=== PATIENT | female | born 1940 | race Caucasian/White ===

== ENCOUNTER 2017-08-20 18:52 | Emergency (ER) | payer MEDICARE ==
[~2017-08-20] VITALS: Ht 162.6 cm; Wt 63.5 kg
[~2017-08-20 18:52] MED LIST: METF500T4; SIMV10TA6 PO
--- NOTE | 2017-08-20 19:08 | NUR ---
PATIENT TO ED DT LEFT RIB PAIN, 07/10, ACHING SP FALL SUNDAY, PATIENT IS AAO4. APPEARS IN NO APPARENT DISTRESS. RESPIRATION EVEN AND UNLABORED. VSS. AFEBRILE, PENDING MD WILSON
[2017-08-20] MEDS ORDERED: HYDROMORPHONE INJ 2 MG/ML DISP.SYRIN ONE (19:40)
[2017-08-20] MEDS ORDERED: ONDANSETRON HCL/PF 4 MG/2 ML VIAL ONE (19:41)
[2017-08-20 19:50] LABS: BASOPHILS % (AUTO) 0.4 % (0.0-2.0); EOSINOPHILS # (AUTO) 0.2 /CMM (0.0-0.7); EOSINOPHILS % (AUTO) 2.2 % (0.0-6.0); HEMATOCRIT 36 % (33-45); HEMOGLOBIN 12.1 g/dL (11.5-14.8); LYMPHOCYTES # (AUTO) 2.8 /CMM (0.8-4.8); LYMPHOCYTES % (AUTO) 33.5 % (20.0-44.0); MEAN CORPUSCULAR HEMOGLOBIN 28 PG (26.0-33.0); MEAN CORPUSCULAR HGB CONC 34 g/dl (31.0-36.0); MEAN CORPUSCULAR VOLUME 84 fL (82-100); MONOCYTES # (AUTO) 0.5 /CMM (0.1-1.30); MONOCYTES % (AUTO) 6.5 % (2.0-12.0); NEUTROPHILS # (AUTO) 4.9 /CMM (1.8-8.9); NEUTROPHILS % (AUTO) 57.4 % (43.0-81.0); PLATELET COUNT (AUTO) 245 /CMM (150-450); RDW COEFFICIENT OF VARIATION 12.7 (11.5-15.0); RED BLOOD CELL COUNT(AUTO) 4.31 MIL/uL (4.0-5.2); WHITE BLOOD COUNT (AUTO) 8.4 K/uL (4.3-11.0)
[2017-08-20 20:00] LABS: CALCIUM, SERUM 9.7 mg/dL (8.5-10.1); CARBON DIOXIDE 29 mmol/L (21-32); CHLORIDE 103 mmol/L (98-107); CREATININE 0.9 mg/dL (0.6-1.3); GLUCOSE 140 mg/dL (74-106); POTASSIUM 3.9 mmol/L (3.5-5.1); SODIUM SERUM 139 mmol/L (136-145); UREA NITROGEN, BLOOD 20 mg/dL (7-18)
[2017-08-20] MEDS ORDERED: ONDANSETRON HCL/PF - ER 4 MG/2 ML VIAL IV ONE (20:00)
[2017-08-20] MEDS ORDERED: HYDROMORPHONE 1 MG/1 ML DISP.SYRIN IV ONE (20:00)
[2017-08-20 20:06] LABS: ALANINE AMINOTRANSFERASE 26 U/L (12-78); ALBUMIN 3.4 g/dL (3.4-5.0); ALKALINE PHOSPHATASE 64 U/L (46-116); ASPARTATE AMINOTRANSFERASE 22 U/L (15-37); BILIRUBIN,TOTAL 0.2 mg/dL (0.2-1.0); LIPASE 68 U/L (73-393)
[2017-08-20 22:00] VITALS: BP 130/71
--- NOTE | 2017-08-20 22:00 | NUR ---
Patient does not wish to proceed with medical care recommended by ([facility] ). Patient given information related to possible complications, up to and including , which could occur as a result of leaving the hospital at this time. Patient verbalizes understanding of risks involved due to leaving against medical advice. Patient has signed AMA form.
== END 2017-08-20 22:01 | disposition left against medical advice (07) ==
LOC: ER 18:53
DX: K80.20 Calculus of gallbladder without cholecystitis without obstruction (principal); K56.600 Partial intestinal obstruction, unspecified as to cause; K57.30 Diverticulosis of large intestine without perforation or abscess without bleeding; E11.9 Type 2 diabetes mellitus without complications; I10 Essential (primary) hypertension; K76.0 Fatty (change of) liver, not elsewhere classified; Z90.12 Acquired absence of left breast and nipple; Z90.11 Acquired absence of right breast and nipple; Z53.20 Procedure and treatment not carried out because of patient's decision for unspecified reasons
CPT/HCPCS: 36415; 71010; 74176; 80048; 80076; 83690; 85025; 96374; 96375; 99285; A4606; J1170; J2405 ×2; Z7610

== ENCOUNTER 2023-06-18 18:07 | Emergency (ER) | payer MEDICARE, OTHER ==
[~2023-06-18] VITALS: Ht 157.5 cm; Wt 82.6 kg
[~2023-06-18 18:07] MED LIST changes: +METF-440; -METF500T4; -SIMV10TA6 PO; +SIMV10TA98 PO
[2023-06-18 18:23] VITALS: BP 165/80; TEMP 98.8; O2SAT 98
[2023-06-18] MEDS ORDERED: VALA100026 PO ×2 (18:59→19:13)
== END 2023-06-18 19:30 | disposition home or self-care (01) ==
LOC: ER 18:22
DX: B02.9 Zoster without complications (principal); I10 Essential (primary) hypertension; E11.9 Type 2 diabetes mellitus without complications; Z60.2 Problems related to living alone; Z79.84 Long term (current) use of oral hypoglycemic drugs